=== PATIENT | female | born 1960 | race Caucasian/White ===

== ENCOUNTER 2023-09-15 20:55 | Emergency (ER) | payer MEDICARE, OTHER ==
--- NOTE | 2023-09-15 21:02 | ERPHSYRPT ---
- History of Present Illness Time Seen by Provider: 09/15/23 21:02 Historian: patient, family Exam Limitations: no limitations Physician History: This is a 63-year-old white female patient who is here because of abdominal pain and abdominal distention. She has had chronic abdominal pain and has a right lower quadrant ostomy with stool and air in the bag. Patient has had multiple abdominal surgeries in the past and has a known parastomal hernia present. Patient was seen at [facility] where she underwent a CT scan of the abdomen and pelvis on 09/11/2023. The bowels were nonobstructed. Patient then returned to the hospital on 09/14/2023 and had repeat labs performed. Patient has nausea but no vomiting. Patient has a history of COPD and uses oxygen via nasal cannula as needed basis at home. Patient arrives to the emergency department with a room air oxygen saturation of 89%. Will be placed 4 L of oxygen on her via nasal cannula she increased to 94 to 95%. Patient denies diarrhea. She denies shortness of breath. She denies chest pain. Patient also has a history of chronic constipation, chronic low back pain and has a nerve stimulator in her back. Patient has an appointment scheduled to see a surgeon in [place] by the name of Dr. Yepez(?). The date is September 19. I reviewed old and patient reports from 2015 regarding this patient. What I found is that the patient has been having recurrent rectal bleeding with constipation and recurrent abdominal pain in the left lower quadrant. She has had a section x 2 and hysterectomy performed. Ultimately, she underwent a sigmoid resection with end colostomy and the rectosigmoid stump. Timing/Duration: worse (Chronic but worse since 09/08/2023), other Quality: fullness, pressure Abdominal Pain Onset Location: generalized abdomen Severity of Pain-Max: moderate Severity of Pain-Current: moderate Associated Symptoms: nausea, No chest pain, No shortness of breath Previous symptoms: same symptoms as today, recently seen, recently treated, no recent treatment Allergies/Adverse Reactions: codeine Adverse Reaction (Verified 09/15/23 21:09) Nausea and Vomiting Home Medications: Cyclobenzaprine HCl 10 mg [Cyclobenzaprine 10 MG] 10 mg PO TID 09/14/15 [History] Omeprazole 20 MG [Prilosec 20 mg] 20 mg PO HS 09/14/15 [History] Budesonide/Formoterol Fumarate [Symbicort 160-4.5 Mcg Inhaler] 1 inh IH BID 11/13/15 [History] Albuterol 8 gm Mdi Hfa [Ventolin Hfa MDI] 2 puffs IH Q4H PRN PRN 11/25/15 [History] Gabapentin [Neurontin ] 300 mg PO TID 10/09/20 [History] Hx Tetanus, Diphtheria Vaccination/Date Given: Yes (unknown) Hx Influenza Vaccination/Date Given: No Hx Pneumococcal Vaccination/Date Given: No Travel Risk - International Travel Have you traveled outside of the country in past 3 weeks: No - Emerging Infectious Disease Are you exhibiting symptoms associated with any current EIDs: No - Review of Systems Constitutional: No Symptoms Eyes: No Symptoms Ears, Nose, & Throat: No Symptoms Respiratory: No Symptoms Cardiac: No Symptoms Abdominal/Gastrointestinal: Abdominal Pain, Nausea, Appetite Changes, No Vomiting, No Diarrhea, No Constipation Genitourinary Symptoms: No Symptoms Musculoskeletal: No Symptoms Skin: No Symptoms Neurological: No Symptoms Psychological: No Symptoms Endocrine: No Symptoms Hematologic/Lymphatic: No Symptoms Immunological/Allergic: No Symptoms All Other Systems: Reviewed and Negative - Past Medical History Pertinent Past Medical History: Yes Neurological History: No Pertinent History ENT History: No Pertinent History Cardiac History: No Pertinent History Respiratory History: COPD Endocrine Medical History: No Pertinent History Musculoskeletal History: Other GI Medical History: Other, GERD History: No Pertinent History Psycho-Social History: No Pertinent History Female Reproductive Disorders: Abnormal Uterine Bleeding Other Medical History: Constipation; CHRONIC BACK PAIN, nerve stimulator in back NICTRON. pt states she has "to many red blood cells" and sees Dr. ARMENTA for that. - Past Surgical History Past Surgical History: Yes Neuro Surgical History: No Pertinent History Cardiac: No Pertinent History Respiratory: No Pertinent History Gastrointestinal: No Pertinent History Genitourinary: No Pertinent History Musculoskeletal: Orthopedic Surgery Female Surgical History: Hysterectomy, Section Other Surgical History: states had fatty tumors removed from back x 5, x 2, - Social History Smoking Status: Current every day smoker How long have you smoked: age 16 Exposure to second hand smoke: Yes Drug Use: none Patient Lives Alone: Yes - Nursing Vital Signs Nursing Vital Signs: Initial Vital Signs Temperature 97.9 F 09/15/23 21:11 Pulse Rate 111 H 09/15/23 21:11 Respiratory Rate 14 09/15/23 21:11 Blood Pressure 153/104 09/15/23 21:11 O2 Sat by Pulse Oximetry 89 L 09/15/23 21:11 Pain Scale Pain Intensity 9 - Physical Exam General Appearance: no apparent distress, alert, anxiety, obese Eye Exam: PERRL/EOMI, eyes nml inspection Ears, Nose, Throat Exam: normal ENT inspection, moist mucous membranes Neck Exam: normal inspection, non-tender, supple, full range of motion Respiratory Exam: normal breath sounds, lungs clear, airway intact, No chest tenderness, No respiratory distress Cardiovascular Exam: tachycardia Gastrointestinal/Abdomen Exam: soft, normal bowel sounds, tenderness (Mild diffuse to palpation), guarding (Mild diffuse to palpation), other (Right lower quadrant ostomy is pink and functioning with stool and air in her ostomy bag), No rebound Pelvic Exam: not done Rectal Exam: not done Back Exam: normal inspection, normal range of motion, No CVA tenderness, No vertebral tenderness Extremity Exam: normal inspection, normal range of motion, pelvis stable Neurologic Exam: alert, oriented x 3, cooperative, flyer maker II-XII nml as tested, normal mood/affect, nml cerebellar function, nml station & gait, sensation nml Skin Exam: normal color, warm, dry Lymphatic Exam: No adenopathy SpO2 Interpretation: normal O2 Delivery: Room Air - Course Nursing assessment & vital signs reviewed: Yes Ordered Tests: Active Orders 24 hr Category Date Time Status IV Insertion STAT Care 09/15/23 21:14 Active IV Insertion-2nd Peripheral STAT Care 09/15/23 22:58 Active ABDOMEN AND PELVIS W/0 CONTRAS [CT] Stat Exams 09/15/23 21:38 Completed AMYLASE Stat Lab 09/15/23 21:20 Completed BLOOD CULTURE Stat Lab 09/15/23 22:55 Received CBC W DIFF Stat Lab 09/15/23 21:20 Completed CMP Stat Lab 09/15/23 21:20 Completed CULTURE,URINE Stat Lab 09/15/23 21:17 Received LIPASE Stat Lab 09/15/23 21:20 Completed Lactic Acid Stat Lab 09/15/23 21:27 Completed UA W/RFX UR CULTURE Stat Lab 09/15/23 21:17 Completed Medication Summary Generic Name Dose Route Start Last Admin Trade Name Freq PRN Reason Stop Dose Admin Sodium Chloride 1,000 mls @ 100 mls/hr 09/15/23 21:15 09/15/23 21:38 Sodium Chloride 0.9% 1000 Ml IV 10/15/23 21:14 100 mls/hr .Q10H FLOR Administration Discontinued Medications Generic Name Dose Route Start Last Admin Trade Name Debo PRN Reason Stop Dose Admin Hydromorphone HCl 1 mg 09/15/23 21:14 09/15/23 21:39 Hydromorphone 1 Mg/1ml Inj IV 09/15/23 21:15 1 mg STAT ONE Administration Hydromorphone HCl Confirm 09/15/23 21:28 Hydromorphone 1 Mg/1ml Inj Administered 09/15/23 21:29 Dose 1 mg .ROUTE .STK-MED ONE Hydromorphone HCl 1 mg 09/16/23 00:50 09/16/23 00:55 Hydromorphone 1 Mg/1ml Inj IV 09/16/23 00:51 1 mg STAT ONE Administration Hydromorphone HCl Confirm 09/16/23 00:55 Hydromorphone 1 Mg/1ml Inj Administered 09/16/23 00:56 Dose 1 mg .ROUTE .STK-MED ONE Piperacillin Sod/Tazobactam 100 mls @ 200 mls/hr 09/15/23 22:45 09/15/23 23:03 Sod 3.375 gm/ Sodium Chloride IV 09/15/23 23:14 200 mls/hr STAT ONE Administration Sodium Chloride Confirm 09/15/23 22:59 Sodium Chloride 100ml Mini-Bag Plus Administered 09/15/23 23:00 Dose 100 mls @ ud IV .STK-MED ONE Ondansetron HCl 4 mg 09/15/23 21:14 09/15/23 21:38 Ondansetron Hcl 4 Mg/2 Ml Vial IV 09/15/23 21:15 4 mg STAT ONE Administration Ondansetron HCl Confirm 09/15/23 21:28 Ondansetron Hcl 4 Mg/2 Ml Vial Administered 09/15/23 21:29 Dose 4 mg .ROUTE .STK-MED ONE Piperacillin Sod/Tazobactam Sod Confirm 09/15/23 22:59 Piperacillin/Tazobactam Sodium 3.375 Gm Vial Administered 09/15/23 23:00 Dose 3.375 gm IV .[facility] ONE Lab/Rad Data: Laboratory Result Diagrams 09/15/23 21:20 09/15/23 21:20 Laboratory Results 09/15/23 09/15/23 09/15/23 Range/Units 21:27 21:20 21:20 WBC 10.5 H (3.98-10.04) x10^3/uL RBC 6.40 H (3.93-5.22) x10^6/uL Hgb 17.4 H (11.2-15.7) g/dL Hct 54.5 H (34.1-44.9) % MCV 85.2 (79.4-94.8) fL MCH 27.2 (25.6-32.2) pg MCHC 31.9 L (32.2-35.5) g/dL RDW 19.4 H (11.7-14.4) % Plt Count 287 (182-369) x10^3/uL MPV 9.0 L (9.4-12.3) fL Gran % 68.5 (34.0-71.1) % Immature Gran % (Auto) 0.3 (0.001-0.429) % Nucleat RBC Rel Count 0.0 (0.00-0.2) % Eos # (Auto) 0.10 (0.04-0.36) x10^3/uL Immature Gran # (Auto) 0.03 (0.001-0.031) x10^3u/L Absolute Lymphs (auto) 2.10 (1.18-3.74) x10^3/uL Absolute Monos (auto) 1.01 H (0.24-0.86) x10^3/uL Absolute Nucleated RBC 0.00 (0.00-0.012) x10^3u/L Lymphocytes % 20.0 (19.3-51.7) % Monocytes % 9.6 (4.7-12.5) % Eosinophils % 1.0 (0.7-5.8) % Basophils % 0.6 (0.1-1.2) % Absolute Granulocytes 7.21 H (1.56-6.13) x10^3/uL Basophils # 0.06 (0.01-0.08) x10^3/uL Sodium 135 (135-145) mmol/L Potassium 3.8 (3.5-5.1) mmol/L Chloride 101 (98-107) mmol/L Carbon Dioxide 24 (22-30) mmol/L Anion Gap 14.9 (5-15) MEQ/L BUN 15 (7-17) mg/dL Creatinine 1.21 H (0.52-1.04) mg/dL Estimated GFR 51.0 ML/MIN Glucose 141 H (74-106) mg/dL Lactic Acid 1.1 (0.4-2.0) Calcium 9.1 (8.4-10.2) mg/dL Total Bilirubin 0.80 (0.2-1.3) mg/dL AST 43 H (14-36) U/L ALT 50 H (0-35) U/L Alkaline Phosphatase 118 (38-126) U/L Serum Total Protein 8.1 (6.3-8.2) g/dL Albumin 4.3 (3.5-5.0) g/dL Amylase 68 (30-110) U/L Lipase 31 (23-300) U/L Urine Color (Yellow) Urine Appearance (Clear) Urine pH (4.6-8.0) Ur Specific Ly[place] (1.005-1.030) Urine Protein (Negative) Urine Glucose (UA) (Negative) mg/dL Urine Ketones (Negative) Urine Blood (Negative) Urine Nitrite (Negative) Urine Bilirubin (Negative) Urine Urobilinogen (0.2) mg/dL Ur Leukocyte Esterase (Negative) U Hyaline Cast (Auto) (0-2) /LPF Urine Microscopic RBC (0-5) /HPF Urine Microscopic WBC (0-5) /HPF Ur Epithelial Cells (None Seen) /HPF Urine Bacteria (None Seen) /HPF Urine Culture Reflexed (NO) 09/15/23 Range/Units 21:17 WBC (3.98-10.04) x10^3/uL RBC (3.93-5.22) x10^6/uL Hgb (11.2-15.7) g/dL Hct (34.1-44.9) % MCV (79.4-94.8) fL MCH (25.6-32.2) pg MCHC (32.2-35.5) g/dL RDW (11.7-14.4) % Plt Count (182-369) x10^3/uL MPV (9.4-12.3) fL Gran % (34.0-71.1) % Immature Gran % (Auto) (0.001-0.429) % Nucleat RBC Rel Count (0.00-0.2) % Eos # (Auto) (0.04-0.36) x10^3/uL Immature Gran # (Auto) (0.001-0.031) x10^3u/L Absolute Lymphs (auto) (1.18-3.74) x10^3/uL Absolute Monos (auto) (0.24-0.86) x10^3/uL Absolute Nucleated RBC (0.00-0.012) x10^3u/L Lymphocytes % (19.3-51.7) % Monocytes % (4.7-12.5) % Eosinophils % (0.7-5.8) % Basophils % (0.1-1.2) % Absolute Granulocytes (1.56-6.13) x10^3/uL Basophils # (0.01-0.08) x10^3/uL Sodium (135-145) mmol/L Potassium (3.5-5.1) mmol/L Chloride (98-107) mmol/L Carbon Dioxide (22-30) mmol/L Anion Gap (5-15) MEQ/L BUN (7-17) mg/dL Creatinine (0.52-1.04) mg/dL Estimated GFR ML/MIN Glucose (74-106) mg/dL Lactic Acid (0.4-2.0) Calcium (8.4-10.2) mg/dL Total Bilirubin (0.2-1.3) mg/dL AST (14-36) U/L ALT (0-35) U/L Alkaline Phosphatase (38-126) U/L Serum Total Protein (6.3-8.2) g/dL Albumin (3.5-5.0) g/dL Amylase (30-110) U/L Lipase (23-300) U/L Urine Color Dark Yellow A (Yellow) Urine Appearance Cloudy A (Clear) Urine pH 6.0 (4.6-8.0) Ur Specific Lyons 1.020 (1.005-1.030) Urine Protein 100 A (Negative) Urine Glucose (UA) Negative (Negative) mg/dL Urine Ketones Trace A (Negative) Urine Blood Negative (Negative) Urine Nitrite Negative (Negative) Urine Bilirubin Small A (Negative) Urine Urobilinogen 1.0 A (0.2) mg/dL Ur Leukocyte Esterase Trace A (Negative) U Hyaline Cast (Auto) 6-10 A (0-2) /LPF Urine Microscopic RBC 0-2 (0-5) /HPF Urine Microscopic WBC 11-20 A (0-5) /HPF Ur Epithelial Cells Many A (None Seen) /HPF Urine Bacteria Many A (None Seen) /HPF Urine Culture Reflexed YES (NO) - Progress Progress: unchanged, re-examined Progress Note: 09/15/23 22:12 My medical decision making and the assignment of moderate complexity to this patient's medical issue today is based on review of the patient's past medical history, review of the patient's medication list, review of patient drug allergy list, history present illness and physical findings on examination. The workup in this patient includes placement of intravenous line, infusion of normal saline solution, infusion of Dilaudid, infusion of Zofran, CBC, CMP, amylase, lipase, urinalysis, CT scan of the abdomen pelvis without contrast. Differential diagnosis includes but is not limited to parastomal hernia, bowel obstruction, pancreatitis, incarcerated hernia 09/15/23 22:[address] scan of the abdomen without contrast was interpreted by the radiologist and I reviewed the impression. The impression states right lower quadrant with large parastomal herniated omental fat and feces distended right hemicolon. There is subsequent obstruction with abnormal fluid distended small bowel. There is 7 cm wide midline umbilical hernia with herniated small bowel and transverse colon also producing proximal bowel obstruction. There is no free air or free fluid present. 09/15/23 23:19 I spoke with general surgeon Dr. Garcia at [facility] in [place]. I reviewed the patient history and physical findings as well as the results of the CT scan. That general surgeon told me, since the patient is stable to have our general surgeons evaluate this patient and then to call him back. He then hung up 09/15/23 23:37 I discussed with the patient my discussion with the general surgeon from [facility]. She reaffirmed that Dr. Babin and Dr. Burgess would not reoperate on her. Therefore, the patient wants to be transferred to a different [facility]. The same surgeons work at [facility] as well as [facility] and therefore we will avoid those facilities. Patient is agreeable to be transferred to [facility] in [facility] if there are beds available. 09/16/23 00:22 I spoke with hospitalist Dr. Bermudez out of [facility]. He needs to check with the surgical service before he accepts or declines this patient. We are awaiting the call back. 09/16/23 01:24 I spoke with hospitalist Dr. Christensen out [place] [facility] I reviewed the patient history, chief complaint physical findings and results of her laboratory data workup. I also provide the patient with current, up-to-date vital signs. Patient is excepted and will be transferred via ALS service. Counseled pt/family regarding: lab results, diagnosis, rad results Medical Desision Making - Independent Historian Additional History obtained from: Family - Diagnostic Testing Diagnostic test were ordered, analyzed, and reviewed by me: Yes Radiological Interpretation: Reviewed by me, Teleradiologist Report - Risk of complications The pt has a high risk of morbidity or mortality based on: Decision regarding hospitilization or escalation of hosp level of care - Departure Departure Disposition: Transfer Clinical Impression: Bowel obstruction, UTI (urinary tract infection) Condition: Stable Critical Care Time: No Referrals: [facility] [place]ATION] - Follow up/PCP as directed
[2023-09-15 21:27] LABS: Absolute Neutrophil Ct (ANC) 7.21 x10^3/uL (1.56-6.13); BASOPHIL % 0.6 % (0.1-1.2); Basophil (Absolute #) 0.06 x10^3/uL (0.01-0.08); Hematocrit 54.5 % (34.1-44.9); Hemoglobin 17.4 g/dL (11.2-15.7); IMMATURE GRAN # 0.03 x10^3u/L (0.001-0.031); IMMATURE GRAN % 0.3 % (0.001-0.429); Mean Cell Volume 85.2 fL (79.4-94.8); Mean Corpuscular Hemoglobin 27.2 pg (25.6-32.2); Mean Corpuscular Hgb Concent. 31.9 g/dL (32.2-35.5); Monocyte (Absolute #) 1.01 x10^3/uL (0.24-0.86); Monocytes % 9.6 % (4.7-12.5); Neutrophil % 68.5 % (34.0-71.1); Platelet Count 287 x10^3/uL (182-369); Red Cell Distribution Width 19.4 % (11.7-14.4); White Blood Count 10.5 x10^3/uL (3.98-10.04)
[2023-09-15] MEDS ORDERED: Zofran 4 MG/2 ML VIAL ONE (21:28)
[2023-09-15] MEDS ORDERED: Hydromorphone 1 mg/ml Injection ONE (21:28)
[2023-09-15 21:30] VITALS: TEMP 97.9
[2023-09-15] MEDS: Zofran 4 MG/2 ML VIAL IV ONE (21:38)
[2023-09-15] MEDS: Sodium Chloride 0.9% 1000 ML 1,000 ML IV SCH (21:38)
[2023-09-15] MEDS: Hydromorphone 1 mg/ml Injection IV ONE (21:39)
[2023-09-15 21:42] LABS: ALBUMIN 4.3 g/dL (3.5-5.0); ANION GAP 14.9 MEQ/L (5-15); BILIRUBIN,TOTAL 0.8 mg/dL (0.2-1.3); Calcium 9.1 mg/dL (8.4-10.2); Creatinine 1 1.21 mg/dL (0.52-1.04); Potassium 3.8 mmol/L (3.5-5.1); Total Protein 8.1 g/dL (6.3-8.2)
[2023-09-15 21:42] LABS: Appearance Cloudy (Clear); Bacteria Many /HPF (None Seen); Bilirubin Small (Negative); Blood Negative (Negative); Epithelial Cells Many /HPF (None Seen); Glucose, Urine Negative (Negative); Ketones Trace (Negative); Leukocyte Esterase Trace (Negative); Nitrite Negative (Negative); Protein,Urine Dip 100 (Negative); RBC 0-2 /HPF (0-5)
[2023-09-15 21:43] LABS: ADD URINE CULTURE? YES (NO)
--- NOTE | 2023-09-15 22:15 | XRAY ---
Indication: Abdominal pain. Parastomal hernia. Multiple contiguous axial images obtained through the abdomen and pelvis without contrast. Comparison: None Lung bases demonstrate scattered subsegmental atelectasis/scarring. Incidental tiny right base calcified granuloma. Heart is not enlarged. [place] right infrahilar calcified nodes. Stomach is mildly fluid distended. Right lower quadrant ostomy with large parastomal herniated omental fat and feces distended right hemicolon. There there is subsequent obstruction with abnormal fluid distended small bowel loops up to 4 cm and air distended colon up to 8 cm in diameter. Additional 7 cm wide midline umbilical hernia with herniated small bowel and transverse colon also producing proximal bowel obstruction in. No free fluid/air. Rectal stump unremarkable. Incidental 3.8 cm left upper renal cyst, tiny hepatic/splenic calcified granulomas, and hysterectomy. Remaining liver, gallbladder, pancreas, spleen, adrenal glands, kidneys, ureters, and bladder are unremarkable for noncontrast exam. Mild scattered aortoiliac calcifications without AAA. Osseous structures intact with osteopenia, minimal degenerative changes throughout spine, and right lower back epidural generator with 2 epidural leads terminating presumed mid thoracic spine. Impression: 1. Right lower quadrant ostomy with large parastomal herniated omental fat and colon producing obstruction as detailed. 2. [place] ventral hernia with herniated small and large bowel loop also producing proximal bowel obstruction. 3. Chronic findings including left renal cyst, arteriosclerotic disease, chronic bony findings, and old granulomatous disease.
[2023-09-15] MEDS ORDERED: PIPERACILLIN/TAZOBACTAM IV ONE (22:59)
[2023-09-15] MEDS ORDERED: Sodium Chloride 100ML MINI-BAG PLUS 100 ML IV ONE (22:59)
[2023-09-15] MEDS: PIPERACILLIN/TAZOBACTAM 3.375 GM in Sodium Chloride 100ML MINI-BAG PLUS 100 ML IV ONE (23:03)
[2023-09-16] MEDS ORDERED: Hydromorphone 1 mg/ml Injection ONE ×3 (00:55→08:41)
[2023-09-16] MEDS: Hydromorphone 1 mg/ml Injection IV ONE ×3 (00:55→08:42)
[2023-09-16] MEDS: Sodium Chloride 0.9% 1000 ML 1,000 ML IV SCH (08:18)
[2023-09-16 10:12] VITALS: BP 122/77; PULSE 88; RESP 18; O2SAT 98
== END 2023-09-16 10:14 | disposition short-term general hospital (02) ==
LOC: ED 20:55
DX: K56.609 Unspecified intestinal obstruction, unspecified as to partial versus complete obstruction (principal); N39.0 Urinary tract infection, site not specified; R10.9 Unspecified abdominal pain; Z93.3 Colostomy status; R11.0 Nausea; Z79.899 Other long term (current) drug therapy; Z72.0 Tobacco use
CPT/HCPCS: 36000; 36415; 74176; 80053; 81001; 82150; 83605; 83690; 85025; 87040; 87086; 96360; 96361; 96374; 96376; 99285; J1170; J2405

== ENCOUNTER 2023-11-07 14:33 | Emergency (ER) | payer MEDICARE, OTHER ==
[2023-11-07 14:51] VITALS: TEMP 98
--- NOTE | 2023-11-07 15:03 | ERPHSYRPT ---
- History of Present Illness Time Seen by Provider: 11/07/23 15:02 Source: patient Exam Limitations: no limitations Patient Subjective Stated Complaint: C/O RLE pain following a fall at home just prior to arrival in ER today. Patient fell at home while doing laundry. States she became dizzy and then woke up on the floor. Triage Nursing Assessment: Patient arrived by ambulance. She is alert and oriented. Small skin tear noted to right ankle. No bruising or skin alterations noted to right knee but pain present with palpation. Physician History: Patient had a right sided colostomy, done 2 years ago after she had intestinal obstruction. Patient had another surgery on September 14 for abdominal hernia and another obstruction. Patient has healing wound on the anterior abdominal wall in the midline with some wound drainage for which she is getting wound care. Patient says that she was standing at the home and she felt dizzy and next and she knows that she found herself on the floor. She had a phone with her so she called ambulance. Patient has a small superficial abrasion with skin tear at the distal end of the right great toe. Patient has a pain in the right foot and the right ankle. Denies any other symptoms or injuries. Occurred: just prior to arrival Reason for Fall: lightheaded, fell from standing pos, became dizzy Injuries/Pain Location: lower extremity Loss of Consciousness: brief (seconds) Quality: aching, stabbing Severity of Pain-Max: moderate Severity of Pain-Current: moderate Modifying Factors: Improves With: nothing Associated Symptoms (Fall): dizziness, lightheadedness Allergies/Adverse Reactions: codeine Adverse Reaction (Verified 11/07/23 14:35) Nausea and Vomiting Home Medications: Cyclobenzaprine HCl 10 mg [Cyclobenzaprine 10 MG] 10 mg PO TID 09/14/15 [History] Omeprazole 20 MG [Prilosec 20 mg] 20 mg PO HS 09/14/15 [History] Budesonide/Formoterol Fumarate [Symbicort 160-4.5 Mcg Inhaler] 1 inh IH BID 11/13/15 [History] Albuterol 8 gm Mdi Hfa [Ventolin Hfa MDI] 2 puffs IH Q4H PRN PRN 11/25/15 [History] Gabapentin [Neurontin ] 300 mg PO TID 10/09/20 [History] Fluticasone Propionate [Flonase NASAL] 1 spray INTRANASAL DAILY PRN 11/07/23 [History] Mirabegron [Myrbetriq] 50 mg PO DAILY 11/07/23 [History] Rivaroxaban [Xarelto] 20 mg PO DAILY 11/07/23 [History] Zolpidem Tartrate [Ambien] 5 mg PO HS 11/07/23 [History] Hx Tetanus, Diphtheria Vaccination/Date Given: Yes Hx Influenza Vaccination/Date Given: No Hx Pneumococcal Vaccination/Date Given: No Immunizations Up to Date: Yes Travel Risk - International Travel Have you traveled outside of the country in past 3 weeks: No - Emerging Infectious Disease Are you exhibiting symptoms associated with any current EIDs: No Symptoms: Abdominal Pain - Review of Systems Constitutional: No Fever, No Chills Eyes: No Symptoms Ears, Nose, & Throat: No Symptoms Respiratory: No Cough, No Dyspnea Cardiac: No Chest Pain, No Edema, No Syncope Abdominal/Gastrointestinal: No Abdominal Pain, No Nausea, No Vomiting, No Diarrhea Genitourinary Symptoms: No Dysuria Musculoskeletal: Other (Pain and vague tenderness right ankle and right foot. No deformity. No swelling. Superficial abrasion and skin tear at the distal end of the right great toe.), No Back Pain, No Neck Pain Skin: Other (Pain and vague tenderness right ankle and right foot. No deformity . No swelling. Superficial abrasion and skin tear at the distal end of the right great toe.), No Rash Neurological: Dizziness, No Focal Weakness, No Paralysis, No Parasthesia, No Sensory Changes, No Speech Changes Psychological: No Symptoms Endocrine: No Symptoms All Other Systems: Reviewed and Negative - Past Medical History Pertinent Past Medical History: Yes Neurological History: No Pertinent History ENT History: No Pertinent History Cardiac History: No Pertinent History Respiratory History: COPD Endocrine Medical History: No Pertinent History Musculoskeletal History: Other GI Medical History: GERD, Hernia, Other History: No Pertinent History Psycho-Social History: No Pertinent History Female Reproductive Disorders: Abnormal Uterine Bleeding Other Medical History: Chronic back pain, nerve stimulator in back NICTRON. pt states she has "to many red blood cells" and sees Dr. ARMENTA for that and this is the reason for her xarelto therapy, overactive bladder - Past Surgical History Past Surgical History: Yes Neuro Surgical History: No Pertinent History Cardiac: No Pertinent History Respiratory: No Pertinent History Gastrointestinal: Hernia Repair, Other Genitourinary: No Pertinent History Musculoskeletal: Orthopedic Surgery Female Surgical History: Hysterectomy, Section Other Surgical History: states had fatty tumors removed from back x 5, x 2, Colostomy placement - Social History Smoking Status: Never smoker How long have you smoked: age 16 Exposure to second hand smoke: No Drug Use: none Patient Lives Alone: Yes - Social Determinants of Health Will the patient participate in the screening: Yes Do you worry about a steady place to live?: No Do you have any problems with any of the following?: No known problems In the past 12 months,have you had to go without utilities?: No Transportation Issues: No Has anyone in your support network made you feel unsafe?: No Have you or anyone in your house had to go without enough: No - Nursing Vital Signs Nursing Vital Signs: Initial Vital Signs Temperature 98 F 11/07/23 14:34 Pulse Rate 86 11/07/23 14:34 Respiratory Rate 16 11/07/23 14:34 Blood Pressure 125/100 11/07/23 14:34 O2 Sat by Pulse Oximetry 100 11/07/23 14:34 Pain Scale Pain Intensity 5 - Pham Coma Score Best Eye Response (Pham): (4) open spontaneously Best Verbal Response (Pham): (5) oriented Best Motor Response ([place]): (6) obeys commands Pham Total: 15 - Physical Exam General Appearance: no apparent distress, alert Head Injury: no evidence of injury Eye Exam: PERRL/EOMI ENT Exam: airway nml Neck Exam: trachea midline, full range of motion, normal alignment, normal inspection, No muscle spasm, No tenderness Respiratory/Chest Exam: normal breath sounds, No chest tenderness, No respiratory distress Cardiovascular Exam: normal heart sounds, regular rate/rhythm Gastrointestinal Exam: soft, other (Colostomy on the right side and healing wound in the midline with some drainage at the distal end.), No tenderness, No distention, No guarding, No ecchymosis Back Exam: normal inspection, No vertebral tenderness Extremity Exam: normal range of motion, capillary refill <3 sec, pelvis stable, evidence of injury, other (Pain and vague tenderness right ankle and right foot. No deformity. No swelling. Superficial abrasion and skin tear at the distal end of the right great toe.), No deformities, No bony point tenderness, No sensory deficit Neurologic Exam: alert, oriented x 3, cooperative, sensation nml, No motor deficits Skin Exam: normal color, warm, dry, other (Pain and vague tenderness right ankle and right foot. No deformity. No swelling. Superficial abrasion and skin tear at the distal end of the right great toe.) SpO2 Interpretation: normal SpO2: 100 O2 Delivery: Room Air - Course Nursing assessment & vital signs reviewed: Yes - Radiology Exams Ankle X-ray Interpretation: Teleradiologist Report, Negative - CT Exams Head CT Interpretation: Negative, Tele-radiologist Report Ordered Tests: Active Orders 24 hr Category Date Time Status Can Line Operator STAT Care 11/07/23 15:17 Active EKG-ER Only STAT Care 11/07/23 15:16 Active ANKLE (3 VIEWS) Stat Exams 11/07/23 15:18 Completed FOOT (MINIMUM 3 VIEWS) Stat Exams 11/07/23 15:18 Completed HEAD WITHOUT CONTRAST [CT] Stat Exams 11/07/23 15:17 Completed CBC W DIFF Stat Lab 11/07/23 15:20 Completed CMP Stat Lab 11/07/23 15:20 Completed MAGNESIUM Stat Lab 11/07/23 15:20 Completed TROPONIN Q4H Lab 11/07/23 15:20 Completed TROPONIN Q4H Lab 11/07/23 19:30 Ordered TROPONIN Q4H Lab 11/07/23 23:30 Ordered Medication Summary Discontinued Medications Generic Name Dose Route Start Last Admin Trade Name Freq PRN Reason Stop Dose Admin Hydrocodone Bitart/Acetaminophen 1 tab 11/07/23 15:19 11/07/23 15:29 Hydrocodone/Apap 5/325 1 Tab Tablet PO 11/07/23 15:20 1 tab STAT ONE Administration Hydrocodone Bitart/Acetaminophen Confirm 11/07/23 15:26 Hydrocodone/Apap 5/325 1 Tab Tablet Administered 11/07/23 15:27 Dose 1 tab .ROUTE .STK-MED ONE Tetanus/Diphtheria Toxoids Adsorbed 0.5 ml 11/07/23 15:19 11/07/23 15:30 Tetanus And Diphtheria Tox/Pf 0.5 Ml Vial IM 11/07/23 15:20 0.5 ml .ONCE ONE Administration Tetanus/Diphtheria Toxoids Adsorbed Confirm 11/07/23 15:27 Tetanus And Diphtheria Tox/Pf 0.5 Ml Vial Administered 11/07/23 15:28 Dose 0.5 ml IM .[facility] ONE Lab/Rad Data: Laboratory Result Diagrams 11/07/23 15:20 11/07/23 15:20 Laboratory Results 11/07/23 11/07/23 11/07/23 Range/Units 15:20 15:20 15:20 WBC 8.2 (3.98-10.04) x10^3/uL RBC 5.25 H (3.93-5.22) x10^6/uL Hgb 14.1 (11.2-15.7) g/dL Hct 46.0 H (34.1-44.9) % MCV 87.6 (79.4-94.8) fL MCH 26.9 (25.6-32.2) pg MCHC 30.7 L (32.2-35.5) g/dL RDW 15.1 H (11.7-14.4) % Plt Count 264 (182-369) x10^3/uL MPV 8.6 L (9.4-12.3) fL Gran % 75.5 H (34.0-71.1) % Immature Gran % (Auto) 0.5 H (0.001-0.429) % Nucleat RBC Rel Count 0.0 (0.00-0.2) % Eos # (Auto) 0.10 (0.04-0.36) x10^3/uL Immature Gran # (Auto) 0.04 H (0.001-0.031) x10^3u/L Absolute Lymphs (auto) 1.37 (1.18-3.74) x10^3/uL Absolute Monos (auto) 0.42 (0.24-0.86) x10^3/uL Absolute Nucleated RBC 0.00 (0.00-0.012) x10^3u/L Lymphocytes % 16.8 L (19.3-51.7) % Monocytes % 5.1 (4.7-12.5) % Eosinophils % 1.2 (0.7-5.8) % Basophils % 0.9 (0.1-1.2) % Absolute Granulocytes 6.17 H (1.56-6.13) x10^3/uL Basophils # 0.07 (0.01-0.08) x10^3/uL Sodium 138 (135-145) mmol/L Potassium 4.1 (3.5-5.1) mmol/L Chloride 103 (98-107) mmol/L Carbon Dioxide 26 (22-30) mmol/L Anion Gap 13.1 (5-15) MEQ/L BUN 13 (7-17) mg/dL Creatinine 0.85 (0.52-1.04) mg/dL Estimated GFR 77.9 ML/MIN Glucose 108 H (74-106) mg/dL Calcium 9.4 (8.4-10.2) mg/dL Magnesium 2.0 (1.6-2.3) mg/dL Total Bilirubin 0.50 (0.2-1.3) mg/dL AST 24 (14-36) U/L ALT 20 (0-35) U/L Alkaline Phosphatase 98 (38-126) U/L Troponin I < 0.012 (0.000-0.033) ng/mL Serum Total Protein 7.9 (6.3-8.2) g/dL Albumin 4.2 (3.5-5.0) g/dL - Progress Progress: improved Counseled pt/family regarding: lab results, diagnosis, need for follow-up, rad results Medical Desision Making - Risk of complications Minimal Risk: Minimal risk of morbidity - Departure Departure Disposition: Home Clinical Impression: Dizziness, Abrasion, right foot, initial encounter Fall on same level Qualifiers: Encounter type: initial encounter Qualified Code(s): W18.30XA - Fall on same level, unspecified, initial encounter Contusion of right foot Qualifiers: Encounter type: initial encounter Qualified Code(s): S90.31XA - Contusion of right foot, initial encounter Condition: Stable Critical Care Time: No Referrals: [facility] [Primary Care Provider] - Follow up/PCP as directed Additional Instructions: Fall precaution. Wound check by PCP in few days. Wound care. Return to the ER for any emergency or new symptoms or worsening symptoms.
[2023-11-07] MEDS ORDERED: NORCO 5/325 MG ONE (15:26)
[2023-11-07] MEDS ORDERED: TENIVAC VIAL IM ONE (15:27)
[2023-11-07] MEDS: NORCO 5/325 MG PO ONE (15:29)
[2023-11-07 15:30] LABS: Absolute Neutrophil Ct (ANC) 6.17 x10^3/uL (1.56-6.13); BASOPHIL % 0.9 % (0.1-1.2); Basophil (Absolute #) 0.07 x10^3/uL (0.01-0.08); Eosinophil % 1.2 % (0.7-5.8); Hemoglobin 14.1 g/dL (11.2-15.7); IMMATURE GRAN # 0.04 x10^3u/L (0.001-0.031); IMMATURE GRAN % 0.5 % (0.001-0.429); Lymphocyte (Absolute #) 1.37 x10^3/uL (1.18-3.74); Lymphocytes % 16.8 % (19.3-51.7); Mean Cell Volume 87.6 fL (79.4-94.8); Mean Corpuscular Hemoglobin 26.9 pg (25.6-32.2); Mean Corpuscular Hgb Concent. 30.7 g/dL (32.2-35.5); Mean Platelet Volume 8.6 fL (9.4-12.3); Monocyte (Absolute #) 0.42 x10^3/uL (0.24-0.86); Monocytes % 5.1 % (4.7-12.5); Neutrophil % 75.5 % (34.0-71.1); Platelet Count 264 x10^3/uL (182-369); Red Blood Count 5.25 x10^6/uL (3.93-5.22); Red Cell Distribution Width 15.1 % (11.7-14.4); White Blood Count 8.2 x10^3/uL (3.98-10.04)
[2023-11-07] MEDS: TENIVAC VIAL IM ONE (15:30)
[2023-11-07 15:47] LABS: ALBUMIN 4.2 g/dL (3.5-5.0); ANION GAP 13.1 MEQ/L (5-15); BILIRUBIN,TOTAL 0.5 mg/dL (0.2-1.3); Calcium 9.4 mg/dL (8.4-10.2); Creatinine 1 0.85 mg/dL (0.52-1.04); EST GLOMERULAR FILTRATION RATE 77.9 ML/MIN; Potassium 4.1 mmol/L (3.5-5.1); Total Protein 7.9 g/dL (6.3-8.2)
--- NOTE | 2023-11-07 16:44 | XRAY ---
Indication: Pain following fall. Comparison: September 14, 2015 3 portable views right ankle demonstrates osteopenia and tiny posterior/plantar heel spurs. No other bony, articular, or soft tissue abnormalities.
--- NOTE | 2023-11-07 16:44 | XRAY ---
Indication: Pain following fall. Comparison: None AP/oblique portable views right foot demonstrates osteopenia and small cuboid accessory ossicle. No other bony, articular, or soft tissue abnormalities.
--- NOTE | 2023-11-07 17:10 | XRAY ---
Indication: Syncope. Dizziness. Multiple contiguous axial images obtained through the head without contrast. Comparison: None Age-appropriate global atrophy and moderate periventricular degenerative micro-ischemia bilaterally. No acute intracranial hemorrhage, abnormal extra-axial fluid collection, or mass effect. Fourth ventricle is midline without hydrocephalus. Bony calvarium intact. Visualized paranasal sinuses and mastoid air cells are clear. Impression: Nonacute senile brain.
[2023-11-07 17:47] VITALS: RESP 18
[2023-11-07 18:23] VITALS: BP 122/81; PULSE 70; O2SAT 97
== END 2023-11-07 18:20 | disposition home or self-care (01) ==
LOC: ED 14:33
DX: S90.31XA Contusion of right foot, initial encounter (principal); S90.411A Abrasion, right great toe, initial encounter; M79.661 Pain in right lower leg; W19.XXXA Unspecified fall, initial encounter; R42 Dizziness and giddiness; M25.571 Pain in right ankle and joints of right foot; M79.671 Pain in right foot; Z79.01 Long term (current) use of anticoagulants; Z23 Encounter for immunization
CPT/HCPCS: 36415; 70450; 73610; 73630; 80053; 83735; 84484; 85025; 90471; 90714; 93005; 93041; 99284; A9270-GY

== ENCOUNTER 2024-04-22 15:58 | Emergency (ER) | payer MEDICARE, OTHER ==
--- NOTE | 2024-04-22 16:06 | ERPHSYRPT ---
- History of Present Illness Historian: patient Exam Limitations: no limitations Hx Tetanus, Diphtheria Vaccination/Date Given: Yes Hx Influenza Vaccination/Date Given: No Hx Pneumococcal Vaccination/Date Given: No <CASSIDY FERNANDES - Last Filed: 04/22/24 19:13> - History of Present Illness Timing/Duration: today Quality: aching, burning, cramping Abdominal Pain Onset Location: LUQ, LLQ Pain Radiation: no radiation <BRAYDON MUÑOZ - Last Filed: 04/22/24 20:52> - History of Present Illness Physician History: Patient is having abdominal pain. It is just a little bit superior and lateral to her ostomy site. It is a cramping pain. She says whenever she leans forward the pain gets better whenever she stands up straight orDoes extension through her waist it gets worse. Is been going on for about 2 days now. She has had no fever or chills. Nothing really makes the symptoms go away. She says intermittent pain. She says she noticed some changes from her ostomy site. She says it looks thinner and darker. There is been no change in her diet that she knows of. She has had no fever or chills or other symptoms. (CASSIDY FERNANDES) Allergies/Adverse Reactions: codeine Adverse Reaction (Verified 04/22/24 16:05) Nausea and Vomiting Home Medications: Cyclobenzaprine HCl 10 mg [Cyclobenzaprine 10 MG] 10 mg PO TID 09/14/15 [History] Omeprazole 20 MG [Prilosec 20 mg] 20 mg PO HS 09/14/15 [History] Gabapentin [Neurontin ] 300 mg PO TID 10/09/20 [History] Fluticasone Propionate [Flonase NASAL] 1 spray INTRANASAL DAILY PRN 11/07/23 [History] Mirabegron [Myrbetriq] 50 mg PO DAILY 11/07/23 [History] Rivaroxaban [Xarelto] 20 mg PO DAILY 11/07/23 [History] Zolpidem Tartrate [Ambien] 5 mg PO HS 11/07/23 [History] Ibuprofen 800 mg PO TID 04/22/24 [History] Travel Risk - Emerging Infectious Disease Are you exhibiting symptoms associated with any current EIDs: No Symptoms: Abdominal Pain <CASSIDY FERNANDES - Last Filed: 04/22/24 19:13> - Review of Systems Constitutional: No Symptoms Eyes: No Symptoms Ears, Nose, & Throat: No Symptoms Respiratory: No Symptoms Genitourinary Symptoms: No Symptoms <CASSIDY FERNANDES - Last Filed: 04/22/24 19:13> - Past Medical History Pertinent Past Medical History: Yes Neurological History: No Pertinent History ENT History: No Pertinent History Cardiac History: No Pertinent History Respiratory History: COPD Endocrine Medical History: No Pertinent History Musculoskeletal History: Other GI Medical History: GERD, Hernia, Other History: No Pertinent History Psycho-Social History: No Pertinent History Female Reproductive Disorders: Abnormal Uterine Bleeding Other Medical History: Chronic back pain, nerve stimulator in back NICT[place]. pt states she has "to many red blood cells" and sees Dr. ARMENTA for that and this is the reason for her xarelto therapy, overactive bladder - Past Surgical History Past Surgical History: Yes Neuro Surgical History: No Pertinent History Cardiac: No Pertinent History Respiratory: No Pertinent History Gastrointestinal: Hernia Repair, Other Genitourinary: No Pertinent History Musculoskeletal: Orthopedic Surgery Female Surgical History: Hysterectomy, Section Other Surgical History: states had fatty tumors removed from back x 5, x 2, Colostomy placement - Social History Smoking Status: Never smoker How long have you smoked: age 16 Exposure to second hand smoke: No Drug Use: none Patient Lives Alone: Yes - Social Determinants of Health Will the patient participate in the screening: Yes Do you worry about a steady place to live?: No In the past 12 months,have you had to go without utilities?: No Transportation Issues: No Has anyone in your support network made you feel unsafe?: No Have you or anyone in your house had to go w/o enough food: No <ZACHARIAH FERNANDEST NoreenAlexander - Last Filed: 04/22/24 19:13> - Physical Exam General Appearance: no apparent distress Eye Exam: PERRL/EOMI Neck Exam: normal inspection, non-tender Respiratory Exam: normal breath sounds, lungs clear, No chest tenderness Cardiovascular Exam: regular rate/rhythm, normal heart sounds Gastrointestinal/Abdomen Exam: soft, normal bowel sounds, tenderness (Mild tenderness in the right upper quadrant.), No distention, No mass Neurologic Exam: alert, oriented x 3 Skin Exam: normal color, warm, dry Lymphatic Exam: No adenopathy <CASSIDY FERNANDES. - Last Filed: 04/22/24 19:13> - Nursing Vital Signs Nursing Vital Signs: Initial Vital Signs Temperature 98.8 F 04/22/24 16:03 Pulse Rate 90 04/22/24 16:03 Respiratory Rate 18 04/22/24 16:03 Blood Pressure 156/91 04/22/24 16:03 O2 Sat by Pulse Oximetry 90 L 04/22/24 16:03 Pain Scale Pain Intensity 6 Ordered Tests: Active Orders 24 hr Category Date Time Status CBC W DIFF Stat Lab 04/22/24 16:22 Completed CMP Stat Lab 04/22/24 16:22 Completed LIPASE Stat Lab 04/22/24 16:22 Completed Medication Summary Discontinued Medications Generic Name Dose Route Start Last Admin Trade Name Freq PRN Reason Stop Dose Admin Droperidol 0.625 mg 04/22/24 19:26 04/22/24 19:36 Droperidol 5 Mg/2 Ml Vial IV 04/22/24 19:27 0.625 mg 1XONLY ONE Administration Droperidol Confirm 04/22/24 19:32 Droperidol 5 Mg/2 Ml Vial Administered 04/22/24 19:33 Dose 5 mg .ROUTE .STK-MED ONE Hydromorphone HCl 1 mg 04/22/24 19:27 04/22/24 19:38 Hydromorphone 1 Mg/1ml Inj IV 04/22/24 19:28 1 mg STAT ONE Administration Hydromorphone HCl Confirm 04/22/24 19:32 Hydromorphone 1 Mg/1ml Inj Administered 04/22/24 19:33 Dose 1 mg .ROUTE .STK-MED ONE Lab/Rad Data: Laboratory Result Diagrams 04/22/24 16:22 04/22/24 16:22 Laboratory Results 04/22/24 04/22/24 Range/Units 16:22 16:22 WBC 11.3 H (3.98-10.04) x10^3/uL RBC 5.71 H (3.93-5.22) x10^6/uL Hgb 16.0 H (11.2-15.7) g/dL Hct 48.8 H (34.1-44.9) % MCV 85.5 (79.4-94.8) fL MCH 28.0 (25.6-32.2) pg MCHC 32.8 (32.2-35.5) g/dL RDW 14.7 H (11.7-14.4) % Plt Count 260 (182-369) x10^3/uL MPV 8.9 L (9.4-12.3) fL Gran % 76.5 H (34.0-71.1) % Immature Gran % (Auto) 0.3 (0.001-0.429) % Nucleat RBC Rel Count 0.0 (0.00-0.2) % Eos # (Auto) 0.07 (0.04-0.36) x10^3/uL Immature Gran # (Auto) 0.03 (0.001-0.031) x10^3u/L Absolute Lymphs (auto) 1.68 (1.18-3.74) x10^3/uL Absolute Monos (auto) 0.81 (0.24-0.86) x10^3/uL Absolute Nucleated RBC 0.00 (0.00-0.012) x10^3u/L Lymphocytes % 14.9 L (19.3-51.7) % Monocytes % 7.2 (4.7-12.5) % Eosinophils % 0.6 L (0.7-5.8) % Basophils % 0.5 (0.1-1.2) % Absolute Granulocytes 8.66 H (1.56-6.13) x10^3/uL Basophils # 0.06 (0.01-0.08) x10^3/uL Sodium 140 (135-145) mmol/L Potassium 3.9 (3.5-5.1) mmol/L Chloride 102 (98-107) mmol/L Carbon Dioxide 26 (22-30) mmol/L Anion Gap 16.2 H (5-15) MEQ/L BUN 15 (7-17) mg/dL Creatinine 0.79 (0.52-1.04) mg/dL Estimated GFR 85.1 ML/MIN Glucose 121 H (74-106) mg/dL Calcium 9.2 (8.4-10.2) mg/dL Total Bilirubin 0.80 (0.2-1.3) mg/dL AST 33 (14-36) U/L ALT 23 (0-35) U/L Alkaline Phosphatase 96 (38-126) U/L Serum Total Protein 8.4 H (6.3-8.2) g/dL Albumin 4.7 (3.5-5.0) g/dL Lipase 34 (23-300) U/L <CASSIDY FERNANDES - Last Filed: 04/22/24 19:13> <BRAYDON MUÑOZ - Last Filed: 04/22/24 20:52> - Progress Progress Note: Patient was stable throughout stay. Her labs all look good. We are trying to get a CT on her. She is managing the pain fine. She seems to be stable. I think she may just have a GI virus. Will know more after the CAT scan. And when to turn the patient over to the doctor on-call coming in.Her labs all look good.We are waiting on the CT scan. 04/22/24 19:13 (CASSIDY FERNANDES) 04/22/24 20:47 I spoke to the patient at length she requested analgesia he was given droperidol and Dilaudid which she tolerated with significant relief. He then informed me that she wished to go home and did not want the CT of the abdomen and pelvis. All risk and benefits explained she is of sound medical decision making capability and she left AMA. Risks of sepsis, bowel perforation, explained. Still wishes to leave and does not want the CT. the residential pest control technician was present during the discussion (BRAYDON MUÑOZ) Medical Desision Making - Discussion of managment Reviewed:: Need for additional workup Agreed on:: need for follow-up <BRAYDON MUÑOZ - Last Filed: 04/22/24 20:52> <CASSIDY FERNANDES - Last Filed: 04/22/24 19:13> - Departure Departure Disposition: AMA Critical Care Time: No <BRAYDON MUÑOZ - Last Filed: 04/22/24 20:52> - Departure Clinical Impression: Abdominal pain Condition: Stable Referrals: [facility] [Primary Care Provider] - Follow up/PCP as directed
[2024-04-22 16:12] VITALS: BP 156/91; PULSE 90; RESP 18; TEMP 98.8; O2SAT 90
[2024-04-22 16:21] LABS: Absolute Neutrophil Ct (ANC) 8.66 x10^3/uL (1.56-6.13); BASOPHIL % 0.5 % (0.1-1.2); Basophil (Absolute #) 0.06 x10^3/uL (0.01-0.08); Eosinophil % 0.6 % (0.7-5.8); Eosinophil (Absolute #) 0.07 x10^3/uL (0.04-0.36); Hematocrit 48.8 % (34.1-44.9); IMMATURE GRAN # 0.03 x10^3u/L (0.001-0.031); IMMATURE GRAN % 0.3 % (0.001-0.429); Lymphocyte (Absolute #) 1.68 x10^3/uL (1.18-3.74); Lymphocytes % 14.9 % (19.3-51.7); Mean Cell Volume 85.5 fL (79.4-94.8); Mean Corpuscular Hgb Concent. 32.8 g/dL (32.2-35.5); Mean Platelet Volume 8.9 fL (9.4-12.3); Monocyte (Absolute #) 0.81 x10^3/uL (0.24-0.86); Monocytes % 7.2 % (4.7-12.5); Neutrophil % 76.5 % (34.0-71.1); Platelet Count 260 x10^3/uL (182-369); Red Blood Count 5.71 x10^6/uL (3.93-5.22); Red Cell Distribution Width 14.7 % (11.7-14.4); White Blood Count 11.3 x10^3/uL (3.98-10.04)
[2024-04-22 16:34] LABS: ALBUMIN 4.7 g/dL (3.5-5.0); ANION GAP 16.2 MEQ/L (5-15); BILIRUBIN,TOTAL 0.8 mg/dL (0.2-1.3); Calcium 9.2 mg/dL (8.4-10.2); Creatinine 1 0.79 mg/dL (0.52-1.04); EST GLOMERULAR FILTRATION RATE 85.1 ML/MIN; Potassium 3.9 mmol/L (3.5-5.1); Total Protein 8.4 g/dL (6.3-8.2)
[2024-04-22] MEDS ORDERED: Hydromorphone 1 mg/ml Injection ONE (19:32)
[2024-04-22] MEDS ORDERED: Inapsine 5 MG/2 ML ONE (19:32)
[2024-04-22] MEDS: Inapsine 5 MG/2 ML IV ONE (19:36)
[2024-04-22] MEDS: Hydromorphone 1 mg/ml Injection IV ONE (19:38)
== END 2024-04-22 20:20 | disposition left against medical advice (07) ==
LOC: ED 15:58
DX: R10.9 Unspecified abdominal pain (principal); Z79.01 Long term (current) use of anticoagulants; Z79.899 Other long term (current) drug therapy; Z93.3 Colostomy status
CPT/HCPCS: 36415; 80053; 83690; 85025; 96374; 96375; 99283; 99284; J1171; J1790